=== PATIENT | male | born 1975 | race Caucasian/White ===

== ENCOUNTER 2020-11-10 07:42 | Emergency (ER) | payer OTHER, SELFPAY ==
[2020-11-10 07:47] VITALS: BP 137/92; PULSE 75; RESP 18; TEMP 36.2; O2SAT 99; BMI 27.7
[2020-11-10] MEDS: tetanus-dipt-pertussis 0.5 mL SDV IM (07:59)
[2020-11-10 08:00] VITALS: BP 137/92; PULSE 72; O2SAT 98
[2020-11-10] MEDS: lidocaine 1% INJ 20 mL 3 ML INTRADERMA (08:01)
--- NOTE | 2020-11-10 08:16 | ED_ITS ---
HPI - Wound/Laceration General: Chief Complaint: Wound/Laceration Stated Complaint: L HAND WOUND/LACERATION Time Seen by Provider: 11/10/20 07:45 History of Present Illness: HPI narrative: Patient was in a pocket knife and sustained a laceration to his left palmar area this morning at work. Onset (ago): minute(s) Extremity Location: Left: hand Place: work Patient tetanus UTD: No Context: accidental Associated symptoms: Reports no associated symptoms; Denies chills or fever(s) Review of Systems Const: Denies: fever(s) or chills Skin/Breast: Denies: other (Laceration to the left hand that occurred at work while using a pocket knif) Psych: Denies: anxiety Physical Exam Const: COMMON NORMALS: no acute distress Psych: COMMON NORMALS: mental status grossly normal Skin: OTHER: Patient has a 2 and half inch laceration to the left palmar surface extending from the base of the thumb into the palm with no active bleeding. Patient has full range of motion of thumb and finger good sensation good vascular supply Procedures Laceration Laceration 1: Site: hand Side (If applicable): left Size (cm): 6 Description: linear Depth: simple, single layer Local Anesthetic: lidocaine 1% Amount of anesthesia used (mL): 2 Pre-repair: wound explored, irrigated extensively and deep structures intact Skin layer closed with: vicryl Size (cm): 4-0 Number of sutures: 7 Technique: simple, interrupted Course Vital Signs: Vital signs: Vital Signs Temperature 97.2 F L 11/10/20 07:47 Pulse Rate 75 11/10/20 07:47 Respiratory Rate 18 11/10/20 07:47 Blood Pressure 137/92 11/10/20 07:47 Pulse Oximetry 99 11/10/20 07:47 Discharge Plan Discharge Patient Disposition: Home Clinical Impression: Laceration Condition: Stable Discharge Orders: Discharge ED (Routine); Ordered 11/10/20 Ordered By: Stephen Leigh Referrals: Jessy Toscano DO [Primary Care Provider] - Discharge Diet: Usual diet Discharge Activity: Limit activity as instructed Patient Instructions: Suture Care (ED), Laceration (ED) Activity Restrictions/Additional Instructions: Observe for areas and signs of infection which would be redness warmth drainage around the area. Sutures will have slight redness around them is normal. Keep area clean and dry keep dressing on. Sutures out in 7 days. Can return here or go to the urgent care for suture removal. Coding Level of Care Code ED [employer] Hel[employer] for Zuleima Ward
== END 2020-11-10 08:28 | disposition home or self-care (01) ==
PROVIDERS: Emergency Provider Nurse Practitioner Family; PCP Family Medicine
DX: S61.412A Laceration without foreign body of left hand, initial encounter (principal); W26.0XXA Contact with knife, initial encounter; Z23 Encounter for immunization
CPT/HCPCS: 12002; 90471; 90715; 99283